=== PATIENT | male | born 1940 | race Caucasian/White ===

== ENCOUNTER 2024-06-17 06:16 | Day surgery (SDC) | payer OTHER ==
[~2024-06-17] VITALS: Ht 182.9 cm; Wt 106.0 kg
[~2024-06-17 06:16] MED LIST: AMLO10 PO; ASPI81EC; ASPI81EC PO; ATOR80 PO; Aspir 8181 MG PO; BENAML20/5; Balanced Salt Epinephrine Irrigation Solution 500 mL IR SCH; CARV6.25 PO; CLON.2 PO; DULO60 PO; FINA5 PO; HYDACE5 PO; HYDCHL25; HYDHCL25 PO; Isosorbide Mono30 MG PO; JARDIANCE25 MG PO; LEVEMIR100 UNIT/1 SC; LORA2; LOSARTAN-HCTZ1 EAC6 PO; Lidocaine HCl/Pf 1% 5 ML VIAL XX SCH; METF500 PO; METF850 PO; METO25ER; METO25ER PO; MINIPRESS5 MG PO; Moxifloxacin HCL 0.5 MG/0.1 ML 0.4MLSYR RIGHTEYE SCH; NITR.4SL; NITR.4SL SL; OMEP20ER; PANT40; PHENYLEPHRINE\\TROPICAMIDE\\TETRACAINE OPHTHALMIC DILATING SOLN RIGHTEYE PRN; Povidone-Iodine 450 DROP/30 ML Solution RIGHTEYE SCH; QUET25 PO; ROSU10TA; SERT50 PO; SPIR25; Tetracaine HCl/Pf 0.5% Opth Soln 4 ml ONE; Triamcinolone Inj Susp 40 MG / ML 1ML Vial INJ SCH; VYTORIN; Zestril PO; Zocor PO; [UNRECOGNIZED DRUG - OTHER]; [UNRECOGNIZED DRUG - OTHER]
[2024-06-17] MEDS ORDERED: Povidone-Iodine 450 DROP/30 ML Solution ONE (06:17)
[2024-06-17] MEDS ORDERED: Diazepam 2 MG Tab ONE (06:39)
[2024-06-17] MEDS ORDERED: Lidocaine HCl/Pf 1% 5 ML VIAL ONE (06:41)
[2024-06-17] MEDS ORDERED: Triamcinolone Inj Susp 40 MG / ML 1ML Vial ONE (06:41)
[2024-06-17] MEDS ORDERED: HYDCHL25 PO (06:53)
[2024-06-17] MEDS ORDERED: Tetracaine HCl 0.5% Opth Soln 15 ml RIGHTEYE ONE (07:56)
[2024-06-17 08:19] VITALS: BP 152/73
== END 2024-06-17 08:35 | disposition home or self-care (01) ==
LOC: ORSCSDS 06:16
PROVIDERS: Ophthalmology
PROC: 08RJ3JZ Replacement of Right Lens with Synthetic Substitute, Percutaneous Approach (ICD-10-PCS; principal; 2024-06-17 08:00)
DX: E11.36 Type 2 diabetes mellitus with diabetic cataract (principal); H25.813 Combined forms of age-related cataract, bilateral; I10 Essential (primary) hypertension; G47.33 Obstructive sleep apnea (adult) (pediatric); K21.9 Gastro-esophageal reflux disease without esophagitis; I25.10 Atherosclerotic heart disease of native coronary artery without angina pectoris; F43.10 Post-traumatic stress disorder, unspecified; Z79.84 Long term (current) use of oral hypoglycemic drugs; Z79.899 Other long term (current) drug therapy
CPT/HCPCS: 82947; A9270; J2003; J3301; V2632

== ENCOUNTER 2024-06-24 06:25 | Day surgery (SDC) | payer OTHER ==
[~2024-06-24] VITALS: Ht 182.9 cm; Wt 107.0 kg
[~2024-06-24 06:25] MED LIST changes: +HYDCHL25 PO; +Moxifloxacin HCL 0.5 MG/0.1 ML 0.4MLSYR LEFTEYE SCH; -Moxifloxacin HCL 0.5 MG/0.1 ML 0.4MLSYR RIGHTEYE SCH; +PHENYLEPHRINE\\TROPICAMIDE\\TETRACAINE OPHTHALMIC DILATING SOLN LEFTEYE PRN; -PHENYLEPHRINE\\TROPICAMIDE\\TETRACAINE OPHTHALMIC DILATING SOLN RIGHTEYE PRN; +Povidone-Iodine 450 DROP/30 ML Solution LEFTEYE SCH; +Povidone-Iodine 450 DROP/30 ML Solution ONE; -Povidone-Iodine 450 DROP/30 ML Solution RIGHTEYE SCH
[2024-06-24] MEDS ORDERED: Triamcinolone Inj Susp 40 MG / ML 1ML Vial ONE (06:28)
[2024-06-24] MEDS ORDERED: Lidocaine HCl/Pf 1% 5 ML VIAL ONE (06:28)
[2024-06-24] MEDS ORDERED: Diazepam 2 MG Tab ONE (06:41)
[2024-06-24 08:24] VITALS: BP 170/70
== END 2024-06-24 08:39 | disposition home or self-care (01) ==
LOC: ORSCSDS 06:25
PROVIDERS: Ophthalmology
PROC: 08RK3JZ Replacement of Left Lens with Synthetic Substitute, Percutaneous Approach (ICD-10-PCS; principal; 2024-06-24 08:00)
DX: E11.36 Type 2 diabetes mellitus with diabetic cataract (principal); H25.812 Combined forms of age-related cataract, left eye; Z96.1 Presence of intraocular lens; I12.9 Hypertensive chronic kidney disease with stage 1 through stage 4 chronic kidney disease, or unspecified chronic kidney disease; E11.22 Type 2 diabetes mellitus with diabetic chronic kidney disease; N18.9 Chronic kidney disease, unspecified; F43.10 Post-traumatic stress disorder, unspecified; I25.10 Atherosclerotic heart disease of native coronary artery without angina pectoris; G47.33 Obstructive sleep apnea (adult) (pediatric); E66.9 Obesity, unspecified; Z79.82 Long term (current) use of aspirin; Z79.4 Long term (current) use of insulin; Z79.84 Long term (current) use of oral hypoglycemic drugs; Z79.899 Other long term (current) drug therapy; Z87.891 Personal history of nicotine dependence
CPT/HCPCS: 82947; A9270; J2003; J3301; V2632